=== PATIENT | male | born 1965 | race Caucasian/White ===

== ENCOUNTER 2017-06-12 08:41 | Inpatient (IN) | payer BC, OTHER ==
[~2017-06-12] VITALS: Ht 190.5 cm; Wt 130.0 kg
[~2017-06-12 08:41] MED LIST: ASPI325T4 PO; ATOR-26 PO; CLX/20 PO; FLUT0.15 NAE; LSN5 PO; METO25TA3 PO; NTRGSL4 UT; VITACAP26 PO; XRL15 PO
[2017-06-12] MEDS ORDERED: SODIUM CHLORIDE 0.9% 1000ML 1,000 ML IV STA (09:04)
[2017-06-12] MEDS ORDERED: SODIUM CHLORIDE 0.9% 1000ML 1,000 ML IV ONE (09:04)
[2017-06-12] MEDS ORDERED: ONDANSETRON INJ 2 MG/ML 2 ML VIAL IV STA ×2 (09:04→11:01)
--- NOTE | 2017-06-12 09:07 | EMERGENCY ROOM VISIT NOTE ---
History Report prepared by Loli: Harinder Ribeiro Under the Supervision of: Dr. Onofer Narayanan M.D. First contact with patient: 08:49 Chief Complaint: ABDOMINAL PAIN Stated Complaint: BLOATING & INTENSE PAIN IN ABDOMEN Nursing Triage Summary: Pt reports tightness and bloating in upper abd since . "Body aches and pain in the back, it's hard to eat or take my medicine." Diarrhea and vomiting Tues into Wed, no BM since then. See orange note on chart. History of Present Illness The patient is a 52 year old male with a history of a pulmonary embolism who presents to the Emergency Room with complaints of a persistent illness that started 4 days ago. He states that he started with tightness and bloating in his abdomen, but thought he was getting better because he was not having a fever or a headache. However, the patient states that he then had some diarrhea 3 mornings ago, but has not had a bowel movement since then. He adds that he had some vomiting episodes as well a few days ago. The patient states that whenever he eats or drinks, he feels "bloated", and has not eaten much for 3 days. He notes that he went to the [facility] a few days ago, and it was thought to be food poisoning. He then went to [facility] this morning, and was sent here for concern of dehydration or a blockage. The patient states that he is on Xarelto. He denies any chest pain, shortness of breath, trauma to his abdomen, swelling or pain to his groin, melena, hematochezia, calf pain, or calf swelling. He notes that he has not had any known recent sick contacts. He says that he has not lifted anything overly heavy recently. The patient notes no history of colitis or any other abdominal issues. Source of History: patient Onset: 4 days ago Position: other (global) Quality: other (illness) Timing: other (persistent) Associated Symptoms: + vomiting, + abdominal pain, + diarrhea, No fevers, No headache, No chest pain, No SOB, No melena, No hematochezia Note: Denies calf pain or calf swelling. Review of Systems See HPI for pertinent positives & negatives. A total of 10 systems reviewed and were otherwise negative. Past Medical & Surgical Medical Problems: (1) TELLO (dyspnea on exertion) (2) History of tobacco abuse (3) HTN (hypertension) (4) Hyperlipidemia Surgical Problems: (1) Hx of tympanostomy tubes Old medical records were reviewed. Nurse's notes were reviewed and I agree with. Family History DVT SISTER FH: CAD (coronary artery disease) GRANDMOTHER FH: pulmonary embolism SISTER GRANDFATHER Stroke GRANDMOTHER TIAs MOTHER Social History Smoking Status: Former Smoker Drug Use: none Marital Status: Current/Historical Medications Scheduled Atorvastatin (Lipitor), 80 MG PO DAILY Citalopram (Citalopram Hydrobromide), 20 MG PO DAILY Lisinopril (Lisinopril), 5 MG PO DAILY Metoprolol Succ (Toprol Xl) (Toprol-Xl), 25 MG PO DAILY Rivaroxaban (Xarelto), 20 MG PO DAILY Vitamins C & E (Vitamin C), 1 CAP PO DAILY Scheduled PRN Fluticasone Propionate (Nasal) (Flonase Allergy Relief), 2 SPRAYS AUBREE DAILY PRN for allergies Nitroglycerin (Nitrostat), 0.4 MG UT UD PRN for Chest Pain Allergies Coded Allergies: No Known Allergies (Unverified , 06/12/17) Physical Exam Vital Signs Date Time Temp Pulse Resp B/P (MAP) Pulse Ox O2 Delivery O2 Flow Rate FiO2 06/12/17 14:01 100 20 175/99 93 06/12/17 12:49 101 18 175/99 93 Room Air 06/12/17 12:40 93 Room Air 06/12/17 11:21 87 Room Air 06/12/17 11:21 94 Nasal Cannula 2.0 06/12/17 10:43 103 18 176/90 94 Room Air 06/12/17 08:43 37.1 117 18 150/89 93 Room Air Physical Exam General: Non-ill appearing middle-aged male in no acute distress. HEENT: Normal cephalic atraumatic. Pupils are equal round and reactive to light. Extraocular movements are intact. Oropharynx is pink with moist mucous membranes. No swelling of the mouth lips or tongue. Neck: Supple with a midline trachea. No meningeal signs or stiffness, no JVD or bruits. No Stridor. Chest: Clear to auscultation bilaterally. No wheezes or rhonchi. No increased work of breathing. Heart: regular rate and rhythm. Abdomen: Soft, tenderness in the epigastric area and slight tenderness in the right upper quadrant, no rebound guarding or rigidity. Extremities: No cyanosis clubbing or edema. No calf tenderness or assymetry Spine/Back. Non tender to palpation. No CVA tenderness Skin: Good turgor without rashes. Neurologic exam: Cranial nerves two through 12 are intact. Motor and sensation are intact and symmetrical throughout. Medical Decision & Procedures ER Provider Diagnostic Interpretation: Radiology results as stated below per my review and radiologist interpretation: SINGLE VIEW CHEST CLINICAL HISTORY: Atypical chest pain. FINDINGS: An AP, portable, upright chest radiograph is correlated with chest CT dated 12/04/2015. The examination is degraded by portable technique and patient rotation. The heart is top normal for projection. The pulmonary vasculature is noncongested. There are low lung volumes. There is left basilar consolidation and a small left pleural effusion. The right lung is grossly clear. No pneumothorax is seen. The bony thorax is grossly intact. IMPRESSION: 1. There is a small left pleural effusion with associated left basilar consolidation. This could represent atelectasis and/or pneumonia. Clinical correlation will be required and radiographic follow-up to resolution is recommended. 2. Low lung volumes. The right lung appears clear. Electronically signed by: Rajendra Oropeza M.D. 06/12/2017 9:34 AM Dictated Date/Time: 06/12/2017 9:[address] SCAN OF THE ABDOMEN AND PELVIS WITH IV CONTRAST CLINICAL HISTORY: Generalized abdominal pain. COMPARISON STUDY: No priors. TECHNIQUE: Following the IV administration of 118 cc of Optiray 320, CT scan of the abdomen and pelvis is performed from the lung bases to the proximal femora. Images are reviewed in the axial, sagittal, and coronal planes. IV contrast was administered without complication. A dose lowering technique was utilized adhering to the principles of ALARA. CT DOSE: 1503.41 mGy.cm FINDINGS: Lung bases: The heart is normal in size and without pericardial effusion. There are coronary artery calcifications. There is a small left pleural effusion with associated consolidation. Trace pleural fluid is seen at the right lung base. Liver: The contrast-enhanced liver is normal in size, contour, and attenuation. There is no intrahepatic biliary ductal dilatation. The hepatic veins and portal veins are patent. Gallbladder: Unremarkable. Spleen: Normal in size and attenuation. Pancreas: The pancreas is edematous and there is significant peripancreatic inflammatory stranding as well as peripancreatic fluid. The appearance is consistent with acute pancreatitis. The pancreatic parenchyma enhances heterogeneously. There is no clear evidence of necrosis. The splenic vein is patent. No organized. Pancreatic fluid collection is suggested. Adrenal glands: Unremarkable. Kidneys: The contrast enhanced kidneys are normal in size and without hydronephrosis. The kidneys enhance symmetrically. Abdominal vasculature: The abdominal aorta is normal in course and caliber. Bowel: The small bowel and colon are normal in course and caliber. The appendix is normal as visualized. Peritoneum: There is trace perihepatic and perisplenic ascites. A small volume of ascites is also noted in the pelvis. No intraperitoneal free air is seen. A fat-containing umbilical hernia is noted. Lymphadenopathy: None. Pelvic viscera: The bladder, prostate, and seminal vesicles are normal as visualized. There is a tiny fat-containing left inguinal hernia. Skeletal structures: No lytic or blastic lesions are seen. IMPRESSION: 1. Findings are consistent with severe acute pancreatitis. 2. No organized peripancreatic fluid collection is identified. The pancreas parenchyma enhances heterogeneously with no clear evidence of necrosis. 3. There is a small volume of abdominopelvic ascites. 4. Small left pleural effusion with associated consolidation. This likely represents atelectasis. Correlate clinically for evidence of superimposed pneumonia. 5. Trace pleural fluid is seen at the right lung base. 6. Additional findings as above. Electronically signed by: Rajendra Oropeza M.D. 06/12/2017 10:47 AM Dictated Date/Time: 06/12/2017 10:39 AM Laboratory Results 06/12/17 09:33 Red Blood Count 4.73, Mean Corpuscular Volume 90.1, Mean Corpuscular Hemoglobin 31.7, Mean Corpuscular Hemoglobin Concent 35.2, Mean Platelet Volume 9.9, Neutrophils (%) (Auto) 87.3, Lymphocytes (%) (Auto) 2.9, Monocytes (%) (Auto) 9.5, Eosinophils (%) (Auto) 0.0, Basophils (%) (Auto) 0.0, Neutrophils # (Auto) 18.99, Lymphocytes # (Auto) 0.64, Monocytes # (Auto) 2.07, Eosinophils # (Auto) 0.00, Basophils # (Auto) 0.01 06/12/17 09:33 Test 06/12/17 09:33 06/12/17 09:34 06/12/17 09:55 06/12/17 12:03 White Blood Count 21.77 K/uL (4.8-10.8) Red Blood Count 4.73 M/uL (4.7-6.1) Hemoglobin 15.0 g/dL (14.0-18.0) Hematocrit 42.6 % (42-52) Mean Corpuscular Volume 90.1 fL (80-100) Mean Corpuscular Hemoglobin 31.7 pg (25-34) Mean Corpuscular Hemoglobin Concent 35.2 g/dl (32-36) Platelet Count 146 K/uL (130-400) Mean Platelet Volume 9.9 fL (7.4-10.4) Neutrophils (%) (Auto) 87.3 % Lymphocytes (%) (Auto) 2.9 % Monocytes (%) (Auto) 9.5 % Eosinophils (%) (Auto) 0.0 % Basophils (%) (Auto) 0.0 % Neutrophils # (Auto) 18.99 K/uL (1.4-6.5) Lymphocytes # (Auto) 0.64 K/uL (1.2-3.4) Monocytes # (Auto) 2.07 K/uL (0.11-0.59) Eosinophils # (Auto) 0.00 K/uL (0-0.5) Basophils # (Auto) 0.01 K/uL (0-0.2) RDW Standard Deviation 40.4 fL (36.4-46.3) RDW Coefficient of Variation 12.1 % (11.5-14.5) Immature Granulocyte % (Auto) 0.3 % Immature Granulocyte # (Auto) 0.06 K/uL (0.00-0.02) Urine Color DK YELLOW Urine Appearance CLEAR (CLEAR) Urine pH 6.0 (4.5-7.5) Urine Specific [place] 1.025 (1.000-1.030) Urine Protein 3+ (NEG) Urine Glucose (UA) NEG (NEG) Urine Ketones 3+ (NEG) Urine Occult Blood 3+ (NEG) Urine Nitrite NEG (NEG) Urine Bilirubin NEG (NEG) Urine Urobilinogen NEG (NEG) Urine Leukocyte Esterase NEG (NEG) Urine WBC (Auto) 1-5 /hpf (0-5) Urine RBC (Auto) 10-30 /hpf (0-4) Urine Hyaline Casts (Auto) 1-5 /lpf (0-5) Urine Epithelial Cells (Auto) >30 /lpf (0-5) Urine Bacteria (Auto) NEG (NEG) Urine Renal Epithelial Cells /lpf (0-5) Anion Gap 8.0 mmol/L (3-11) Est Creatinine Clear Calc Drug Dose 134.0 ml/min Estimated GFR () 107.0 Estimated GFR (Non- 92.3 BUN/Creatinine Ratio 14.4 (10-20) Calcium Level 8.1 mg/dl (8.5-10.1) Total Bilirubin 1.4 mg/dl (0.2-1) Direct Bilirubin 0.3 mg/dl (0-0.2) Aspartate Amino Transf (AST/SGOT) 43 U/L (15-37) Alanine Aminotransferase (ALT/SGPT) 26 U/L (12-78) Alkaline Phosphatase 76 U/L (45-117) Total Protein 7.3 gm/dl (6.4-8.2) Albumin 2.6 gm/dl (3.4-5.0) Amylase Level 64 U/L (25-115) Lipase 271 U/L (73-393) Procalcitonin 0.35 ng/ml (0-0.5) Bedside Troponin I 0.040 ng/ml (0-0.045) Influenza Type A Antigen Neg for Influ A (NEG) Influenza Type B Antigen Neg for Influ B (NEG) Lactic Acid Level 1.2 mmol/L (0.4-2.0) Laboratory studies as stated above per my review. Medications Administered Medications (Trade) Dose Ordered Sig/Fili Route Start Time Stop Time Status Last Admin Dose Admin Sodium Chloride 1,000 ml @ 999 mls/hr Q1H1M STAT IV 06/12/17 09:04 06/12/17 10:04 DC 06/12/17 09:39 999 MLS/HR Sodium Chloride 1,000 ml @ 150 mls/hr Q6H40M ONCE IV 06/12/17 09:04 06/12/17 15:43 06/12/17 10:20 150 MLS/HR Ondansetron HCl (Zofran Inj) 4 mg NOW STAT IV 06/12/17 09:04 06/12/17 09:05 DC 06/12/17 09:38 4 MG Ondansetron HCl (Zofran Inj) 4 mg NOW STAT IV 06/12/17 11:01 06/12/17 11:02 DC 06/12/17 11:10 4 MG Morphine Sulfate (MoRPHine SULFATE INJ) 2 mg NOW STAT IV 06/12/17 11:01 06/12/17 11:02 DC 06/12/17 11:10 2 MG Potassium Chloride (Klor-Con M10) 40 meq NOW STAT PO 06/12/17 13:04 06/12/17 13:05 DC 06/12/17 13:06 40 MEQ Piperacillin Sod/ Tazobactam Sod 3.375 gm/Dextrose 115 ml @ 230 mls/hr NOW ONCE IV 06/12/17 12:30 06/12/17 12:59 DC 06/12/17 14:00 230 MLS/HR ECG Per My Interpretation Indication: abdominal pain Rate (beats per minute): 103 Rhythm: sinus tachycardia Findings: no acute ischemic change, no ectopy Comparison ECG Date: compared to November 2015, T-wave inversions have resolved, rate has increased ED Course 0854: Past medical records reviewed. The patient was evaluated in room B10, and a complete history and physical examination were performed. 0904: Zofran Inj 4 mg IV, NSS 1000 ml @ 150 mls/hr IV, NSS 1000 ml @ 999 mls/hr IV. 1014: I reevaluated the patient and he is resting comfortably. 1058: Upon reevaluation, the patient is resting. I discussed the results and treatment plan with the patient. He verbalized agreement of the treatment plan. The patient will be evaluated for further management. 1101: Morphine Sulfate Inj 2 mg IV. 1105: Discussed the patient's case with Dr. Milo Suazo resident services coordinator. The patient will be evaluated for further management. Medical Decision Differentials include, but are not limited to; viral illness, dehydration, gallbladder disease, bowel obstruction, intraabdominal hemorrhage. This patient comes in as described above. He was placed in room B 11. He's been having abdominal pain and nausea for several days now. Initially, thought it was influenza. He's had no chest pain or shortness of breath. He feels he is dehydrated. IV access established hydrated normal saline bolus. He was also given Zofran 4 mg IV. Multiple blood testing was obtained. He was reassessed frequently. He did also receive IV morphine 2 mg IV Zofran 4 mg. His white count come back elevated at 21,000. He has no significant electrolyte or metabolic abnormalities. His lipase is not significant elevated. His CAT scan however a severe pancreatitis. The gallbladder is normal. In regards his pancreatitis, he does not drink much alcohol. It could be medication or viral related. It could still potentially be related to his gallbladder. He will need further workup in the hospital as well. He is feeling better after receiving IV hydration and pain medicine. I have consulted the hospitalist group who will see him in the ER for these measures. Medication Reconcilliation Current Medication List: was personally reviewed by me Blood Pressure Screening Patient's blood pressure: Elevated blood pressure Referred to hospitalist. Consults Time Called: 1100 Consulting Physician: Dr. Milo Suazo resident services coordinator Returned Call: [phone] Discussed the patient's case with Dr. Milo Suazo resident services coordinator. The patient will be evaluated for further management. Impression Primary Impression: Pancreatitis Additional Impression: Epigastric abdominal pain Scribe Attestation The scribe's documentation has been prepared under my direction and personally reviewed by me in its entirety. I confirm that the note above accurately reflects all work, treatment, procedures, and medical decision making performed by me. Departure Information Dispostion Being Evaluated By Hospitalist Referrals Maureen TAVAREZ M.D. (PCP) Patient Instructions My [facility] Problem Qualifiers
[2017-06-12] MEDS ORDERED: RIVA1TAB4 PO (09:12)
--- NOTE | 2017-06-12 09:36 | DIAGNOSTIC IMAGING REPORT ---
SINGLE VIEW CHEST CLINICAL HISTORY: Atypical chest pain. FINDINGS: An AP, portable, upright chest radiograph is correlated with chest CT dated 12/04/2015. The examination is degraded by portable technique and patient rotation. The heart is top normal for projection. The pulmonary vasculature is noncongested. There are low lung volumes. There is left basilar consolidation and a small left pleural effusion. The right lung is grossly clear. No pneumothorax is seen. The bony thorax is grossly intact. IMPRESSION: 1. There is a small left pleural effusion with associated left basilar consolidation. This could represent atelectasis and/or pneumonia. Clinical correlation will be required and radiographic follow-up to resolution is recommended. 2. Low lung volumes. The right lung appears clear. Electronically signed by: Rajendra Oropeza M.D. 06/12/2017 9:34 AM Dictated Date/Time: 06/12/2017 9:33 AM
[2017-06-12 09:58] LABS: ALBUMIN 2.6 gm/dl (3.4-5.0); CALCIUM 8.1 mg/dl (8.5-10.1); CREATININE 0.95 mg/dl (0.60-1.40); POTASSIUM 3.2 mmol/L (3.5-5.1)
[2017-06-12 10:01] LABS: TOTAL PROTEIN 7.3 gm/dl (6.4-8.2)
[2017-06-12 10:06] LABS: BASO ABS # 0.01 K/uL (0-0.2); HEMATOCRIT 42.6 % (42-52); IG# 0.06 K/uL (0.00-0.02); LYMPH % 2.9 %; LYMPH ABS # 0.64 K/uL (1.2-3.4); MEAN CELL VOLUME 90.1 fL (80-100); MEAN CORPUSCULAR HEMOGLOBIN 31.7 pg (25-34); MEAN CORPUSCULAR HGB CONC 35.2 g/dl (32-36); MEAN PLATELET VOLUME 9.9 fL (7.4-10.4); MONO % 9.5 %; MONO ABS # 2.07 K/uL (0.11-0.59); NEUT % 87.3 %; NEUT ABS # 18.99 K/uL (1.4-6.5); PLATELET COUNT 146 K/uL (130-400); RED CELL DISTRIBUTION WIDTH CV 12.1 % (11.5-14.5); RED CELL DISTRIBUTION WIDTH SD 40.4 fL (36.4-46.3); WHITE BLOOD COUNT 21.77 K/uL (4.8-10.8)
[2017-06-12] MEDS ORDERED: OPTIRAY 320 IV PRN (10:15)
[2017-06-12 10:33] LABS: INFLUENZA B ANTIGEN Neg for Influ B (NEG)
--- NOTE | 2017-06-12 10:48 | DIAGNOSTIC IMAGING REPORT ---
CT SCAN OF THE ABDOMEN AND PELVIS WITH IV CONTRAST CLINICAL HISTORY: Generalized abdominal pain. COMPARISON STUDY: No priors. TECHNIQUE: Following the IV administration of 118 cc of Optiray 320, CT scan of the abdomen and pelvis is performed from the lung bases to the proximal femora. Images are reviewed in the axial, sagittal, and coronal planes. IV contrast was administered without complication. A dose lowering technique was utilized adhering to the principles of ALARA. CT DOSE: 1503.41 mGy.cm FINDINGS: Lung bases: The heart is normal in size and without pericardial effusion. There are coronary artery calcifications. There is a small left pleural effusion with associated consolidation. Trace pleural fluid is seen at the right lung base. Liver: The contrast-enhanced liver is normal in size, contour, and attenuation. There is no intrahepatic biliary ductal dilatation. The hepatic veins and portal veins are patent. Gallbladder: Unremarkable. Spleen: Normal in size and attenuation. Pancreas: The pancreas is edematous and there is significant peripancreatic inflammatory stranding as well as peripancreatic fluid. The appearance is consistent with acute pancreatitis. The pancreatic parenchyma enhances heterogeneously. There is no clear evidence of necrosis. The splenic vein is patent. No organized. Pancreatic fluid collection is suggested. Adrenal glands: Unremarkable. Kidneys: The contrast enhanced kidneys are normal in size and without hydronephrosis. The kidneys enhance symmetrically. Abdominal vasculature: The abdominal aorta is normal in course and caliber. Bowel: The small bowel and colon are normal in course and caliber. The appendix is normal as visualized. Peritoneum: There is trace perihepatic and perisplenic ascites. A small volume of ascites is also noted in the pelvis. No intraperitoneal free air is seen. A fat-containing umbilical hernia is noted. Lymphadenopathy: None. Pelvic viscera: The bladder, prostate, and seminal vesicles are normal as visualized. There is a tiny fat-containing left inguinal hernia. Skeletal structures: No lytic or blastic lesions are seen. IMPRESSION: 1. Findings are consistent with severe acute pancreatitis. 2. No organized peripancreatic fluid collection is identified. The pancreas parenchyma enhances heterogeneously with no clear evidence of necrosis. 3. There is a small volume of abdominopelvic ascites. 4. Small left pleural effusion with associated consolidation. This likely represents atelectasis. Correlate clinically for evidence of superimposed pneumonia. 5. Trace pleural fluid is seen at the right lung base. 6. Additional findings as above. Electronically signed by: Rajendra Oropeza M.D. 06/12/2017 10:47 AM Dictated Date/Time: 06/12/2017 10:39 AM
[2017-06-12] MEDS ORDERED: MoRPHine SULFATE 2 MG/ML CARP IV STA (11:01)
--- NOTE | 2017-06-12 11:23 | History and Physical ---
History & Physical Date & Time of Service: Jun 12, 2017 at 11:23 Chief Complaint: Bloating & Intense Pain In Abdomen Primary Care Physician: Maureen TAVAREZ M.D. History of Present Illness Source: patient Patient is 52 yr male with PMH of PE on Xarelto, HTN, HLP, NEIDA, Thyroid Nodule, Chronic rhinitis and other problems presents with history of abdominal pain, bloating which started 4 days ago. Patient states he noticed the pain started after drinking alcohol on Wednesday night. Abdominal pain is sharp, consistent, 7/ 10, radiates to back, associated with poor appetite, nausea, vomiting, improved minimally with Pepto Bismol and worsens with food intake. Denies similar symptoms in the past. He states he socially drinks alcohol twice a week. Reports one episode of diarrhea on Wednesday and had no bowel movement since then.Patient states he feels bloated with minimal food intake and has been burping a lot. Reports low grade fever but denies any chest pain, SOB, dizziness , cough, blood in stools, dysuria, recent travel, sick contact, recent change in medications. Past Medical/Surgical History Medical Problems: (1) TELLO (dyspnea on exertion) (2) History of tobacco abuse (3) HTN (hypertension) (4) Hyperlipidemia Surgical Problems: (1) Hx of tympanostomy tubes Family History DVT SISTER FH: CAD (coronary artery disease) GRANDMOTHER FH: pulmonary embolism SISTER GRANDFATHER Stroke GRANDMOTHER TIAs MOTHER Reviewed as above Social History Smoking Status: Former Smoker Alcohol Use: socially Drug Use: none Marital Status: Housing status: lives with significant other Allergies Coded Allergies: No Known Allergies (Unverified , 06/12/17) Home Medications Scheduled Atorvastatin (Lipitor), 80 MG PO DAILY Citalopram (Citalopram Hydrobromide), 20 MG PO DAILY Lisinopril (Lisinopril), 5 MG PO DAILY Metoprolol Succ (Toprol Xl) (Toprol-Xl), 25 MG PO DAILY Rivaroxaban (Xarelto), 20 MG PO DAILY Vitamins C & E (Vitamin C), 1 CAP PO DAILY Scheduled PRN Fluticasone Propionate (Nasal) (Flonase Allergy Relief), 2 SPRAYS AUBREE DAILY PRN for allergies Nitroglycerin (Nitrostat), 0.4 MG UT UD PRN for Chest Pain Review of Systems See HPI for pertinent positives & negatives. A total of 10 systems reviewed and were otherwise negative. Physical Exam Vital Signs Date Time Temp Pulse Resp B/P (MAP) Pulse Ox O2 Delivery O2 Flow Rate FiO2 06/12/17 11:21 94 Nasal Cannula 2.0 06/12/17 10:43 103 18 176/90 94 Room Air 06/12/17 08:43 37.1 117 18 150/89 93 Room Air General Appearance: WD/WN, no apparent distress Head: normocephalic, atraumatic Eyes: normal inspection, PERRL, EOMI, sclerae normal ENT: normal ENT inspection, hearing grossly normal Neck: supple, trachea midline Respiratory/Chest: chest non-tender, lungs clear, normal breath sounds, no respiratory distress, no accessory muscle use Cardiovascular: regular rate, rhythm, no edema, no murmur, + tachycardia Abdomen/GI: normal bowel sounds, soft, + tenderness (Epigastric tenderness), + pertinent finding (No guarding, rigidity) Back: normal inspection Extremities/Musculoskelatal: normal inspection, no pedal edema Neurologic/Psych: 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-XII 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 as tested, no motor/sensory deficits, alert, normal mood/affect, oriented x 3 Skin: normal color, warm/dry Diagnostics Laboratory Results Results Past 24 Hours Test 06/12/17 09:33 06/12/17 09:34 06/12/17 09:55 Range/Units White Blood Count 21.77 4.8-10.8 K/uL Red Blood Count 4.73 4.7-6.1 M/uL Hemoglobin 15.0 14.0-18.0 g/dL Hematocrit 42.6 42-52 % Mean Corpuscular Volume 90.1 80-100 fL Mean Corpuscular Hemoglobin 31.7 25-34 pg Mean Corpuscular Hemoglobin Concent 35.2 32-36 g/dl Platelet Count 146 130-400 K/uL Mean Platelet Volume 9.9 7.4-10.4 fL Neutrophils (%) (Auto) 87.3 % Lymphocytes (%) (Auto) 2.9 % Monocytes (%) (Auto) 9.5 % Eosinophils (%) (Auto) 0.0 % Basophils (%) (Auto) 0.0 % Neutrophils # (Auto) 18.99 1.4-6.5 K/uL Lymphocytes # (Auto) 0.64 1.2-3.4 K/uL Monocytes # (Auto) 2.07 0.11-0.59 K/uL Eosinophils # (Auto) 0.00 0-0.5 K/uL Basophils # (Auto) 0.01 0-0.2 K/uL RDW Standard Deviation 40.4 36.4-46.3 fL RDW Coefficient of Variation 12.1 11.5-14.5 % Immature Granulocyte % (Auto) 0.3 % Immature Granulocyte # (Auto) 0.06 0.00-0.02 K/uL Urine Color DK YELLOW Urine Appearance CLEAR CLEAR Urine pH 6.0 4.5-7.5 Urine Specific [place] 1.025 1.000-1.030 Urine Protein 3+ NEG Urine Glucose (UA) NEG NEG Urine Ketones 3+ NEG Urine Occult Blood 3+ NEG Urine Nitrite NEG NEG Urine Bilirubin NEG NEG Urine Urobilinogen NEG NEG Urine Leukocyte Esterase NEG NEG Urine WBC (Auto) 1-5 0-5 /hpf Urine RBC (Auto) 10-30 0-4 /hpf Urine Hyaline Casts (Auto) 1-5 0-5 /lpf Urine Epithelial Cells (Auto) >30 0-5 /lpf Urine Bacteria (Auto) NEG NEG Urine Renal Epithelial Cells 0-5 /lpf Sodium Level 126 136-145 mmol/L Potassium Level 3.2 3.5-5.1 mmol/L Chloride Level 90 98-107 mmol/L Carbon Dioxide Level 28 21-32 mmol/L Anion Gap 8.0 3-11 mmol/L Blood Urea Nitrogen 14 7-18 mg/dl Creatinine 0.95 0.60-1.40 mg/dl Est Creatinine Clear Calc Drug Dose 134.0 ml/min Estimated GFR () 107.0 Estimated GFR (Non- 92.3 BUN/Creatinine Ratio 14.4 10-20 Random Glucose 111 70-99 mg/dl Calcium Level 8.1 8.5-10.1 mg/dl Total Bilirubin 1.4 0.2-1 mg/dl Direct Bilirubin 0.3 0-0.2 mg/dl Aspartate Amino Transf (AST/SGOT) 43 15-37 U/L Alanine Aminotransferase (ALT/SGPT) 26 12-78 U/L Alkaline Phosphatase 76 45-117 U/L Total Protein 7.3 6.4-8.2 gm/dl Albumin 2.6 3.4-5.0 gm/dl Lipase 271 73-393 U/L Bedside Troponin I 0.040 0-0.045 ng/ml Influenza Type A Antigen Neg for Influ A NEG Influenza Type B Antigen Neg for Influ B NEG Microbiology Results 06/12/17 Urine Culture, Received Pending Diagnostic Radiology CT ABD: 1. Findings are consistent with severe acute pancreatitis. 2. No organized peripancreatic fluid collection is identified. The pancreas parenchyma enhances heterogeneously with no clear evidence of necrosis. 3. There is a small volume of abdominopelvic ascites. 4. Small left pleural effusion with associated consolidation. This likely represents atelectasis. Correlate clinically for evidence of superimposed pneumonia. 5. Trace pleural fluid is seen at the right lung base. 6. Additional findings as above. CXR: 1. There is a small left pleural effusion with associated left basilar consolidation. This could represent atelectasis and/or pneumonia. Clinical correlation will be required and radiographic follow-up to resolution is recommended. 2. Low lung volumes. The right lung appears clear. EKG EKG:Sinus Tachycardia, LVH Impression Assessment and Plan Acute Pancreatitis: Likely alcohol induced CT ABD: suggestive of severe acute pancreatitis NPO IV fluids Lipase levels normal No clear evidence of necrosis on CT scan Counseled to quit alcohol Hold Statins Check RUQ ultrasound GI consulted Empiric antibiotics IV zosyn Check Lipid panel Pain control Monitor LFTs Hyponatremia/Hypokalemia: Likely secondary to dehydration from poor oral intake IV fluids Replace electrolytes as needed Possible Pneumonia (CAP): SIRS Denies respiratory symptoms Was hypoxic secondary to morphine in ED Empiric Abx as above Oxygen PRN Normal lactate, procalcitonin FU cultures H/O PE on Xarelto: Denies bleeding issues continue Xarelto HTN: Uncontrolled likely secondary to pain Continue home meds Labetalol PRN HLP: Hold statin secondary to pancreatitis NEIDA: Stable Continue Celexa Thyroid Nodule: Follow up as outpatient DVT Px: On Xarelto Code Status: Full Code Resuscitation Status VTE Prophylaxis Will order VTE Prophylaxis: Yes
[2017-06-12] MEDS ORDERED: PIPERACILL/TAZOBAC IV 3.375 GM in DEXTROSE 5% 100ML IV ONE (12:30)
[2017-06-12] MEDS ORDERED: FLUTICASONE PROPIONATE NA SPR 16 GM BTL NAE PRN (12:30)
[2017-06-12] MEDS ORDERED: ONDANSETRON INJ 2 MG/ML 2 ML VIAL IV PRN (12:30)
[2017-06-12] MEDS ORDERED: NITROGLYCERIN 0.4 MG SL PER TAB CHARGE SL PRN (12:30)
[2017-06-12] MEDS ORDERED: ACETAMINOPHEN 325 MG TAB PO PRN (12:30)
[2017-06-12] MEDS ORDERED: FAMOTIDINE IV INJ 20 MG in DEXTROSE 5% 100ML 100 ML IV SCH (12:30)
[2017-06-12 12:40] VITALS: O2SAT 93; BMI 36.0
[2017-06-12] MEDS ORDERED: PIPERACILL/TAZOBAC CONSULT ACTIVE PRN (12:45)
[2017-06-12 12:59] VITALS: Ht 190.5 cm; Wt 130.0 kg
[2017-06-12] MEDS ORDERED: POTASSIUM CHLORIDE 10 MEQ TABCR PO STA (13:04)
[2017-06-12] MEDS ORDERED: POTASSIUM CHLORIDE 10 MEQ TABCR ONE (13:05)
[2017-06-12 14:01] VITALS: O2SAT 93
--- NOTE | 2017-06-12 14:51 | DIAGNOSTIC IMAGING REPORT ---
ULTRASOUND RIGHT UPPER QUADRANT ABDOMEN CLINICAL HISTORY: Elevated hepatic transaminases. COMPARISON STUDY: Abdominal CT dated 06/12/2017. TECHNIQUE: Real-time, grayscale, and color flow sonography of the right upper quadrant of the abdomen was performed. Images are reviewed in the transverse and longitudinal planes. The examination is degraded by large body habitus. FINDINGS: Liver: The liver is normal in size and demonstrates heterogeneously increased echotexture suggesting mild steatosis. There is no intrahepatic biliary ductal dilatation. The main portal vein is patent. Gallbladder: The gallbladder is normal in appearance. No gallstones are identified. There is no gallbladder wall thickening or pericholecystic fluid. A sonographic Cornelius's sign is reportedly absent. The common bile duct measures up to 0.5 cm in diameter. Pancreas: Not well visualized due to overlying bowel gas. Right kidney: Survey images of the right kidney demonstrate normal size and echotexture. There is no hydronephrosis. Ascites: None. IMPRESSION: 1. Findings suggest mild hepatic steatosis. 2. No gallstones are identified. 3. The pancreas was not well visualized. Electronically signed by: Rajendra Oropeza M.D. 06/12/2017 2:50 PM Dictated Date/Time: 06/12/2017 2:49 PM
[2017-06-12] MEDS: NSS + 20MEQ KCL 1000ML 1,000 ML IV SCH ×2 (15:19→19:52)
[2017-06-12] MEDS: FAMOTIDINE IV INJ 20 MG in SYRINGE 3 ML IV SCH (15:20)
[2017-06-12] MEDS: MoRPHine SULFATE 2 MG/ML CARP IV PRN ×2 (15:27→19:51)
[2017-06-12 15:36] VITALS: BP 164/108; PULSE 100; TEMP 37.2; O2SAT 94
[2017-06-12] MEDS ORDERED: NURSING VERBAL MED ORDER ONE (16:00)
--- NOTE | 2017-06-12 17:12 | Gastrointestinal Consultation ---
Gastrointestinal Consultation Date of Consultation: Jun 12, 2017 Attending Physician: Danielle Alcocer Consulting Physician: Reason for Consultation: Pancreatitis History of Present Illness Patient is a 52 year old male with medical comorbids of PE on Xarelto, HTN, HLP , Thyroid Nodule, Chronic rhinitis, presented to the hospital with abdominal pain for few days. Pain is sharp, radiates to the back, intermittent, nonprogressing, aggravated by eating and relieved with pain meds, associated with nausea. Pain started after drinking alcohol few days ago. Per his he drinks 2-3 times weekly for many years. Denies any diarrhea or constipation, no weight loss, no dysphagia, no melena and no fever. No similar attacks in the past. Past Medical/Surgical History Medical Problems: (1) Epigastric abdominal pain Status: Acute (2) Pancreatitis Status: Acute Past Medical History: (1) TELLO (dyspnea on exertion) (2) History of tobacco abuse (3) HTN (hypertension) (4) Hyperlipidemia Past Surgical History: (1) Hx of tympanostomy tubes Family History DVT SISTER FH: CAD (coronary artery disease) GRANDMOTHER FH: pulmonary embolism SISTER GRANDFATHER Stroke GRANDMOTHER TIAs MOTHER Social History Smoking Status: Former Smoker Drug Use: none Marital Status: Allergies Coded Allergies: No Known Allergies (Unverified , 06/12/17) Current Medications Home Meds and Scripts Medications Dose Route/Sig Max Daily Dose Days Date Category Xarelto (Rivaroxaban) 20 Mg Tab 20 Mg PO DAILY 06/12/17 Reported Vitamin C (Vitamins C & E) 1 Cap Cap 1 Cap PO DAILY 12/04/15 Reported Nitrostat (Nitroglycerin) 0.4 Mg/1 Tab Subl 0.4 Mg UT UD PRN 12/04/15 Reported Toprol-Xl (Metoprolol Succinate) 25 Mg Tabcr 25 Mg PO DAILY 12/04/15 Reported Lisinopril 5 Mg Tab 5 Mg PO DAILY 12/04/15 Reported Flonase Allergy Relief (Fluticasone Propionate (Nasal)) 50 Mcg/Act Spr 2 Sprays AUBREE DAILY PRN 12/04/15 Reported Citalopram Hydrobromide (Citalopram) 20 Mg Tab 20 Mg PO DAILY 12/04/15 Reported Lipitor (Atorvastatin Calcium) 80 Mg Tab 80 Mg PO DAILY 12/04/15 Reported Review of Systems Constitutional: No fever, No chills Eyes: No worsening of vision, No eye pain ENT: No hearing loss, No sore throat Respiratory: No cough, No sputum Cardiac: No chest pain, No PND Abdomen: + see HPI Musculoskeletal: No joint pain, No muscle pain Male : No dysuria, No urinary frequency Neuro: No memory loss, No paralysis Heme: No abnormal bleeding/bruising, No clotting problems Endo: No fatigue Skin: No rash, No itch Physical Exam Date Time Temp Pulse Resp B/P (MAP) Pulse Ox O2 Delivery O2 Flow Rate FiO2 06/12/17 16:00 Room Air 06/12/17 15:36 37.2 100 18 164/108 (126) 94 Room Air 06/12/17 14:01 100 20 175/99 93 06/12/17 12:49 101 18 175/99 93 Room Air 06/12/17 12:40 93 Room Air 06/12/17 11:21 87 Room Air 06/12/17 11:21 94 Nasal Cannula 2.0 06/12/17 10:43 103 18 176/90 94 Room Air 06/12/17 08:43 37.1 117 18 150/89 93 Room Air General Appearance: no apparent distress Eyes: PERRL ENT: pharynx normal Neck: supple, no JVD Respiratory/Chest: lungs clear, normal breath sounds Cardiovascular: regular rate, rhythm, no edema Abdomen: normal bowel sounds, non tender, soft Extremities: normal range of motion Neurologic/Psych: oriented x 3 Skin: no jaundice Laboratory Results Last 24 Hours Test 06/12/17 09:33 06/12/17 09:34 06/12/17 09:55 06/12/17 12:03 White Blood Count 21.77 K/uL Red Blood Count 4.73 M/uL Hemoglobin 15.0 g/dL Hematocrit 42.6 % Mean Corpuscular Volume 90.1 fL Mean Corpuscular Hemoglobin 31.7 pg Mean Corpuscular Hemoglobin Concent 35.2 g/dl Platelet Count 146 K/uL Mean Platelet Volume 9.9 fL Neutrophils (%) (Auto) 87.3 % Lymphocytes (%) (Auto) 2.9 % Monocytes (%) (Auto) 9.5 % Eosinophils (%) (Auto) 0.0 % Basophils (%) (Auto) 0.0 % Neutrophils # (Auto) 18.99 K/uL Lymphocytes # (Auto) 0.64 K/uL Monocytes # (Auto) 2.07 K/uL Eosinophils # (Auto) 0.00 K/uL Basophils # (Auto) 0.01 K/uL RDW Standard Deviation 40.4 fL RDW Coefficient of Variation 12.1 % Immature Granulocyte % (Auto) 0.3 % Immature Granulocyte # (Auto) 0.06 K/uL Urine Color DK YELLOW Urine Appearance CLEAR Urine pH 6.0 Urine Specific [place] 1.025 Urine Protein 3+ Urine Glucose (UA) NEG Urine Ketones 3+ Urine Occult Blood 3+ Urine Nitrite NEG Urine Bilirubin NEG Urine Urobilinogen NEG Urine Leukocyte Esterase NEG Urine WBC (Auto) 1-5 /hpf Urine RBC (Auto) 10-30 /hpf Urine Hyaline Casts (Auto) 1-5 /lpf Urine Epithelial Cells (Auto) >30 /lpf Urine Bacteria (Auto) NEG Urine Renal Epithelial Cells /lpf Sodium Level 126 mmol/L Potassium Level 3.2 mmol/L Chloride Level 90 mmol/L Carbon Dioxide Level 28 mmol/L Anion Gap 8.0 mmol/L Blood Urea Nitrogen 14 mg/dl Creatinine 0.95 mg/dl Est Creatinine Clear Calc Drug Dose 134.0 ml/min Estimated GFR () 107.0 Estimated GFR (Non- 92.3 BUN/Creatinine Ratio 14.4 Random Glucose 111 mg/dl Calcium Level 8.1 mg/dl Total Bilirubin 1.4 mg/dl Direct Bilirubin 0.3 mg/dl Aspartate Amino Transf (AST/SGOT) 43 U/L Alanine Aminotransferase (ALT/SGPT) 26 U/L Alkaline Phosphatase 76 U/L Total Protein 7.3 gm/dl Albumin 2.6 gm/dl Amylase Level 64 U/L Lipase 271 U/L Procalcitonin 0.35 ng/ml Bedside Troponin I 0.040 ng/ml Influenza Type A Antigen Neg for Influ A Influenza Type B Antigen Neg for Influ B Lactic Acid Level 1.2 mmol/L Impression Patient is a 52 year old male admitted with acute pancreatitis but no evidence of end organ failure. Has leukocytosis and hemoconcentration with ??PNA. His kidney function is normal. CT scan with no pancreatic necrosis or fluid collection. Sono with no gallstones. Etiology is likely Alcohol. Plan Supportive care. IV Hydration at 200cc/hr Monitor Hct and BUN closely. Pain control. NPO today and will advance tomorrow based on clinical status. Advised to avoid alcohol. If this recurs in the future will need referral for EUS.
[2017-06-12 19:48] VITALS: BP 186/109; PULSE 63; TEMP 37; O2SAT 90
[2017-06-12] MEDS: LABETALOL HCL IV 5 MG/ML 20ML IV PRN (20:08)
[2017-06-12] MEDS: PIPERACILL/TAZOBAC IV 4.5 GM in DEXTROSE 5% 100ML IV SCH (21:02)
[2017-06-12 23:48] VITALS: BP 158/83; PULSE 91; TEMP 36.5; O2SAT 88
[2017-06-13] VITALS (7 sets, daily range): BP systolic 144–171; BP diastolic 82–100; PULSE 84–88; TEMP 36.6–37.2; O2SAT 92–94
[2017-06-13] MEDS: NSS + 20MEQ KCL 1000ML 1,000 ML IV SCH ×5 (01:05→20:20)
[2017-06-13] MEDS: PIPERACILL/TAZOBAC IV 4.5 GM in DEXTROSE 5% 100ML IV SCH ×3 (04:16→20:19)
[2017-06-13] MEDS: FAMOTIDINE IV INJ 20 MG in SYRINGE 3 ML IV SCH ×2 (04:17→16:43)
[2017-06-13 06:48] LABS: BASO % 0.1 %; BASO ABS # 0.01 K/uL (0-0.2); EOS % 0.3 %; EOS ABS # 0.05 K/uL (0-0.5); HEMATOCRIT 36.3 % (42-52); HEMOGLOBIN 12.7 g/dL (14.0-18.0); IG# 0.05 K/uL (0.00-0.02); LYMPH % 7.2 %; LYMPH ABS # 1.24 K/uL (1.2-3.4); MEAN CELL VOLUME 90.8 fL (80-100); MEAN CORPUSCULAR HEMOGLOBIN 31.8 pg (25-34); MEAN PLATELET VOLUME 8.9 fL (7.4-10.4); MONO % 7.7 %; MONO ABS # 1.33 K/uL (0.11-0.59); NEUT % 84.4 %; NEUT ABS # 14.63 K/uL (1.4-6.5); PLATELET COUNT 130 K/uL (130-400); RED CELL DISTRIBUTION WIDTH CV 12.5 % (11.5-14.5); RED CELL DISTRIBUTION WIDTH SD 41.3 fL (36.4-46.3); WHITE BLOOD COUNT 17.31 K/uL (4.8-10.8)
[2017-06-13 07:26] LABS: ALBUMIN 2.2 gm/dl (3.4-5.0); CALCIUM 7.5 mg/dl (8.5-10.1); CREATININE 0.91 mg/dl (0.60-1.40); POTASSIUM 3.7 mmol/L (3.5-5.1); TOTAL PROTEIN 6.3 gm/dl (6.4-8.2)
[2017-06-13] MEDS ORDERED: LISINOPRIL 5 MG TAB PO SCH (09:00)
[2017-06-13] MEDS: CITALOPRAM 20 MG TAB PO SCH (09:01)
[2017-06-13] MEDS: METOPROLOL SUCC 25MG EXT REL TAB PO SCH (09:01)
--- NOTE | 2017-06-13 10:05 | Gastroenterology Progress Note ---
Gastroenterology Progress Note Patient seen and examined today, feels much better. No abdominal pain, nausea or vomiting. Tolerated clear liquids. On exam abdomen is soft and nontwender. Labs showed downtrend in Hct. His acute pancreatitis is resolving. Recommendations: Supportive care with IV hydration and pain control. Advance diet tomorrow as tolerated. Alcohol cessation. Recall GI if needed.
[2017-06-13] MEDS: MoRPHine SULFATE 2 MG/ML CARP IV PRN (10:47)
--- NOTE | 2017-06-13 15:06 | Progress Note ---
Medicine Progress Note Date & Time of Visit: Jun 13, 2017 at 14:47. Subjective Pt was seen and examined Lying in bed with no distress Pt said that his abdominal pain improves Denies any chest pain, palpitation, dizziness and SOB Objective Last 8 Hrs Date Time Temp Pulse Resp B/P (MAP) Pulse Ox O2 Delivery O2 Flow Rate FiO2 06/13/17 12:15 37.0 88 20 160/82 (108) 92 Room Air 06/13/17 12:00 Room Air 06/13/17 08:30 Room Air 06/13/17 07:58 36.7 86 20 158/92 (114) 92 Room Air Physical Exam: General- No acute distress Head- atraumatic Eyes- PERRL, EOMI ENT- oropharynx clear Neck- supple, no JVD Lungs- clear to auscultation Heart- regular rhythm Abdomen- +bowel sounds, soft, +tender Extremities- no calf tenderness Neuro- alert, oriented x 3; PERRL, EOMI; no facial palsy Skin- warm & dry Laboratory Results: Last 24 Hours Test 06/13/17 06:39 White Blood Count 17.31 K/uL Red Blood Count 4.00 M/uL Hemoglobin 12.7 g/dL Hematocrit 36.3 % Mean Corpuscular Volume 90.8 fL Mean Corpuscular Hemoglobin 31.8 pg Mean Corpuscular Hemoglobin Concent 35.0 g/dl Platelet Count 130 K/uL Mean Platelet Volume 8.9 fL Neutrophils (%) (Auto) 84.4 % Lymphocytes (%) (Auto) 7.2 % Monocytes (%) (Auto) 7.7 % Eosinophils (%) (Auto) 0.3 % Basophils (%) (Auto) 0.1 % Neutrophils # (Auto) 14.63 K/uL Lymphocytes # (Auto) 1.24 K/uL Monocytes # (Auto) 1.33 K/uL Eosinophils # (Auto) 0.05 K/uL Basophils # (Auto) 0.01 K/uL RDW Standard Deviation 41.3 fL RDW Coefficient of Variation 12.5 % Immature Granulocyte % (Auto) 0.3 % Immature Granulocyte # (Auto) 0.05 K/uL Sodium Level 133 mmol/L Potassium Level 3.7 mmol/L Chloride Level 99 mmol/L Carbon Dioxide Level 30 mmol/L Anion Gap 4.0 mmol/L Blood Urea Nitrogen 12 mg/dl Creatinine 0.91 mg/dl Est Creatinine Clear Calc Drug Dose 140.2 ml/min Estimated GFR () 112.7 Estimated GFR (Non- 97.2 BUN/Creatinine Ratio 13.1 Random Glucose 107 mg/dl Calcium Level 7.5 mg/dl Magnesium Level 2.6 mg/dl Total Bilirubin 0.9 mg/dl Aspartate Amino Transf (AST/SGOT) 29 U/L Alanine Aminotransferase (ALT/SGPT) 21 U/L Alkaline Phosphatase 69 U/L Total Protein 6.3 gm/dl Albumin 2.2 gm/dl Globulin 4.1 gm/dl Albumin/Globulin Ratio 0.5 Triglycerides Level 76 mg/dl Cholesterol Level 95 mg/dl HDL Cholesterol 25 mg/dl LDL Cholesterol, Calculated 55 mg/dl VLDL Cholesterol, Calculated 15 mg/dl Cholesterol/HDL Ratio 3.8 Lipase 162 U/L Assessment & Plan Acute Pancreatitis: Mostly induced by alcohol intake CT abd/pelvis showed findings that are consistent with severe acute pancreatitis. No organized peripancreatic fluid collection is identified Abd U/S showed findings suggest mild hepatic steatosis. No gallstones are identified. Will start on clear liquid diet Continue IV fluids Lipase levels remain normal No clear evidence of necrosis on CT scan GI on board recommended supportive management for now Continue antibiotics IV zosyn Continue pain management Electrolytes imbalance Likely secondary to dehydration from poor oral intake Continue IV fluids Monitor electrolytes Elevated WBC Possible due Pneumonia vs acute pancreatitis WBC 21K on admission WBC today 17K Afebrile, UA no growth Blood cx pending Normal lactate, procalcitonin Continue IV zosyn for now H/O PE on Xarelto: Denies bleeding issues continue Xarelto Stable HTN: Possible related to pain Might consider to increase lisinopril to 10mg if BP remains elevate Continue metoprolol Continue Labetalol PRN Monitor BP HLP: Continue holding statin secondary to pancreatitis NEIDA: Continue Celexa Stable Thyroid Nodule: Follow up as outpatient Stable DVT Px: On Xarelto Code Status: Full Code Current Inpatient Medications: Current Inpatient Medications Medications (Trade) Dose Ordered Sig/Fili Route Start Time Stop Time Status Last Admin Dose Admin Ioversol (Optiray 320) 111 ml UD PRN IV 06/12/17 10:15 06/16/17 10:14 Potassium Chloride/Sodium Chloride 1,000 ml @ 200 mls/hr Q5H IV 06/12/17 15:00 07/12/17 14:59 06/13/17 10:47 200 MLS/HR Acetaminophen (Tylenol Tab) 650 mg Q4H PRN PO 06/12/17 12:30 07/12/17 12:29 Ondansetron HCl (Zofran Inj) 4 mg Q6H PRN IV 06/12/17 12:30 07/12/17 12:29 Nitroglycerin (Nitrostat Tab) 0.4 mg UD PRN SL 06/12/17 12:30 07/12/17 12:29 Miscellaneous Information (Consult) 1 ea UD PRN N/A 06/12/17 12:45 07/12/17 12:44 Morphine Sulfate (MoRPHine SULFATE INJ) 1 mg Q4H PRN IV 06/12/17 12:30 06/26/17 12:29 06/13/17 10:47 1 MG Citalopram Hydrobromide (celeXA TAB) 20 mg DAILY PO 06/13/17 09:00 07/13/17 08:59 06/13/17 09:01 20 MG Fluticasone Propionate (Flonase Nasal [place]) 2 sprays DAILY PRN AUBREE 06/12/17 12:30 07/12/17 12:29 Lisinopril (Zestril Tab) 5 mg DAILY PO 06/13/17 09:00 07/13/17 08:59 06/13/17 09:01 5 MG Metoprolol Succinate (Toprol Xl Tab) 25 mg DAILY PO 06/13/17 09:00 07/13/17 08:59 06/13/17 09:01 25 MG Rivaroxaban (Xarelto Tab) 20 mg DAILY@1700 PO 06/13/17 17:00 07/13/17 16:59 Labetalol HCl (Normodyne IV) 10 mg Q6H PRN IV 06/12/17 12:45 07/12/17 12:44 06/12/17 20:08 10 MG Piperacillin Sod/ Tazobactam Sod 4.5 gm/Dextrose 120 ml @ 30 mls/hr Q8H IV 06/12/17 20:00 06/19/17 19:59 06/13/17 12:33 30 MLS/HR Famotidine 20 mg/ Syringe 5 ml @ 2.5 mls/min Q12H IV 06/12/17 16:00 07/12/17 15:59 06/13/17 04:17 2.5 MLS/MIN
[2017-06-13] MEDS: RIVAROXABAN 20 MG TAB PO SCH (16:43)
[2017-06-13] MEDS: LABETALOL HCL IV 5 MG/ML 20ML IV PRN (20:21)
[2017-06-13] MEDS ORDERED: LISINOPRIL 5 MG TAB PO ONE (22:25)
[2017-06-13] MEDS ORDERED: NSS + 20MEQ KCL 1000ML 1,000 ML IV ONE (23:30)
[2017-06-14] MEDS: FAMOTIDINE IV INJ 20 MG in SYRINGE 3 ML IV SCH (03:25)
[2017-06-14] MEDS: PIPERACILL/TAZOBAC IV 4.5 GM in DEXTROSE 5% 100ML IV SCH ×3 (03:27→20:30)
[2017-06-14 03:39] VITALS: BP 158/96; PULSE 83; TEMP 36.9; O2SAT 95
[2017-06-14 05:55] LABS: HEMATOCRIT 35.6 % (42-52); HEMOGLOBIN 12.3 g/dL (14.0-18.0); MEAN CELL VOLUME 91.8 fL (80-100); MEAN CORPUSCULAR HEMOGLOBIN 31.7 pg (25-34); MEAN CORPUSCULAR HGB CONC 34.6 g/dl (32-36); MEAN PLATELET VOLUME 9.3 fL (7.4-10.4); PLATELET COUNT 166 K/uL (130-400); RED CELL DISTRIBUTION WIDTH CV 12.8 % (11.5-14.5); RED CELL DISTRIBUTION WIDTH SD 43.2 fL (36.4-46.3); WHITE BLOOD COUNT 14.88 K/uL (4.8-10.8)
[2017-06-14 06:25] LABS: CREATININE 0.74 mg/dl (0.60-1.40); POTASSIUM 3.4 mmol/L (3.5-5.1)
[2017-06-14] MEDS: CITALOPRAM 20 MG TAB PO SCH (07:38)
[2017-06-14] MEDS: METOPROLOL SUCC 25MG EXT REL TAB PO SCH (07:39)
[2017-06-14] MEDS: LISINOPRIL 5 MG TAB PO SCH (07:39)
[2017-06-14 08:31] VITALS: BP 182/79; PULSE 84; O2SAT 94
[2017-06-14] MEDS ORDERED: POTASSIUM CHLORIDE 20 MEQ TABCR PO ONE (09:00)
[2017-06-14 11:33] VITALS: BP 169/96; PULSE 76; TEMP 37.1; O2SAT 92
[2017-06-14 15:15] VITALS: BP 166/109; PULSE 82; TEMP 37.2; O2SAT 95
--- NOTE | 2017-06-14 15:57 | Progress Note ---
Medicine Progress Note Date & Time of Visit: Jun 14, 2017 at 15:54. Subjective Pt was seen and examined Sitting in chair with no distress Pt said that pain improved Tolerated clear liquid diet Denies any chest pain, palpitation, dizziness and SOB Objective Last 8 Hrs Date Time Temp Pulse Resp B/P (MAP) Pulse Ox O2 Delivery O2 Flow Rate FiO2 06/14/17 15:15 37.2 82 18 166/109 (128) 95 Room Air 06/14/17 11:33 37.1 76 18 169/96 (120) 92 Room Air 06/14/17 08:31 84 16 182/79 (113) 94 Room Air Physical Exam: General- No acute distress Head- atraumatic Eyes- PERRL, EOMI ENT- oropharynx clear Neck- supple, no JVD Lungs- clear to auscultation Heart- regular rhythm Abdomen- +bowel sounds, soft, nondistended Extremities- no calf tenderness Neuro- alert, oriented x 3; PERRL, EOMI; no facial palsy Skin- warm & dry Laboratory Results: Last 24 Hours Test 06/14/17 05:28 White Blood Count 14.88 K/uL Red Blood Count 3.88 M/uL Hemoglobin 12.3 g/dL Hematocrit 35.6 % Mean Corpuscular Volume 91.8 fL Mean Corpuscular Hemoglobin 31.7 pg Mean Corpuscular Hemoglobin Concent 34.6 g/dl RDW Standard Deviation 43.2 fL RDW Coefficient of Variation 12.8 % Platelet Count 166 K/uL Mean Platelet Volume 9.3 fL Sodium Level 134 mmol/L Potassium Level 3.4 mmol/L Chloride Level 100 mmol/L Carbon Dioxide Level 28 mmol/L Anion Gap 6.0 mmol/L Blood Urea Nitrogen 9 mg/dl Creatinine 0.74 mg/dl Est Creatinine Clear Calc Drug Dose 172.2 ml/min Estimated GFR () 123.8 Estimated GFR (Non- 106.8 BUN/Creatinine Ratio 11.8 Random Glucose 106 mg/dl Calcium Level 8.0 mg/dl Assessment & Plan Acute Pancreatitis: Mostly induced by alcohol intake CT abd/pelvis showed findings that are consistent with severe acute pancreatitis. No organized peripancreatic fluid collection is identified Abd U/S showed findings suggest mild hepatic steatosis. No gallstones are identified. Continue IV fluids Lipase levels remain normal No clear evidence of necrosis on CT scan GI on board recommended supportive management for now On antibiotics IV zosyn Continue pain management Diet advanced as tolerated Electrolytes imbalance Likely secondary to dehydration from poor oral intake Continue IV fluids Monitor electrolytes Elevated WBC Possible due Pneumonia vs acute pancreatitis WBC 21K on admission WBC today 14K Afebrile, UA no growth Blood cx pending Normal lactate, procalcitonin Continue IV zosyn for now H/O PE on Xarelto: Denies bleeding issues continue Xarelto Stable HTN: Possible related to pain Increased lisinopril to 10mg daily Continue metoprolol Continue Labetalol PRN Monitor BP HLP: Continue holding statin secondary to pancreatitis NEIDA: Continue Celexa Stable Thyroid Nodule: Follow up as outpatient Stable DVT Px: On Xarelto Code Status: Full Code Disposition Will discharge tomorrow Follow up appointment with Dr. Samson on 06/18 @ 10:05 AM Current Inpatient Medications: Current Inpatient Medications Medications (Trade) Dose Ordered Sig/Fili Route Start Time Stop Time Status Last Admin Dose Admin Ioversol (Optiray 320) 111 ml UD PRN IV 06/12/17 10:15 06/16/17 10:14 Acetaminophen (Tylenol Tab) 650 mg Q4H PRN PO 06/12/17 12:30 07/12/17 12:29 Ondansetron HCl (Zofran Inj) 4 mg Q6H PRN IV 06/12/17 12:30 07/12/17 12:29 Nitroglycerin (Nitrostat Tab) 0.4 mg UD PRN SL 06/12/17 12:30 07/12/17 12:29 Miscellaneous Information (Consult) 1 ea UD PRN N/A 06/12/17 12:45 07/12/17 12:44 Morphine Sulfate (MoRPHine SULFATE INJ) 1 mg Q4H PRN IV 06/12/17 12:30 06/26/17 12:29 06/13/17 10:47 1 MG Citalopram Hydrobromide (celeXA TAB) 20 mg DAILY PO 06/13/17 09:00 07/13/17 08:59 06/14/17 07:38 20 MG Fluticasone Propionate (Flonase Nasal [place]) 2 sprays DAILY PRN AUBREE 06/12/17 12:30 07/12/17 12:29 Metoprolol Succinate (Toprol Xl Tab) 25 mg DAILY PO 06/13/17 09:00 07/13/17 08:59 06/14/17 07:39 25 MG Rivaroxaban (Xarelto Tab) 20 mg DAILY@1700 PO 06/13/17 17:00 07/13/17 16:59 06/13/17 16:43 20 MG Labetalol HCl (Normodyne IV) 10 mg Q6H PRN IV 06/12/17 12:45 07/12/17 12:44 06/13/17 20:21 10 MG Piperacillin Sod/ Tazobactam Sod 4.5 gm/Dextrose 120 ml @ 30 mls/hr Q8H IV 06/12/17 20:00 06/19/17 19:59 06/14/17 12:31 30 MLS/HR Lisinopril (Zestril Tab) 10 mg DAILY PO 06/14/17 09:00 07/13/17 08:59 06/14/17 07:39 10 MG Famotidine (Pepcid Tab) 20 mg BID PO 06/14/17 21:00 07/14/17 20:59
[2017-06-14] MEDS ORDERED: HydrALAZINE HCL 20 MG/ML VIAL IV. PRN (16:00)
[2017-06-14] MEDS: RIVAROXABAN 20 MG TAB PO SCH (17:08)
[2017-06-14] MEDS: MoRPHine SULFATE 2 MG/ML CARP IV PRN ×2 (17:16→21:19)
[2017-06-14 19:25] VITALS: BP 179/105; PULSE 80; TEMP 37.2; O2SAT 92
[2017-06-14] MEDS: LABETALOL HCL IV 5 MG/ML 20ML IV PRN (20:22)
[2017-06-14] MEDS: FAMOTIDINE 20 MG TAB PO SCH (21:18)
[2017-06-14 23:38] VITALS: BP 159/90; PULSE 80; TEMP 37.2; O2SAT 95
[2017-06-15] MEDS: PIPERACILL/TAZOBAC IV 4.5 GM in DEXTROSE 5% 100ML IV SCH (03:28)
[2017-06-15 03:38] VITALS: BP 162/97; PULSE 79; TEMP 36.9; O2SAT 96
[2017-06-15 07:26] LABS: HEMATOCRIT 37.5 % (42-52); HEMOGLOBIN 12.8 g/dL (14.0-18.0); MEAN CELL VOLUME 91.9 fL (80-100); MEAN CORPUSCULAR HEMOGLOBIN 31.4 pg (25-34); MEAN CORPUSCULAR HGB CONC 34.1 g/dl (32-36); PLATELET COUNT 207 K/uL (130-400); RED CELL DISTRIBUTION WIDTH CV 12.8 % (11.5-14.5); RED CELL DISTRIBUTION WIDTH SD 43.5 fL (36.4-46.3); WHITE BLOOD COUNT 10.37 K/uL (4.8-10.8)
[2017-06-15 07:36] VITALS: BP 152/88; PULSE 80; TEMP 36.7; O2SAT 93
[2017-06-15 07:52] LABS: CREATININE 0.86 mg/dl (0.60-1.40)
[2017-06-15 07:53] LABS: CALCIUM 8.5 mg/dl (8.5-10.1); POTASSIUM 3.3 mmol/L (3.5-5.1)
[2017-06-15] MEDS ORDERED: POTASSIUM CHLORIDE 10 MEQ TABCR PO ONE (08:30)
[2017-06-15] MEDS: FAMOTIDINE 20 MG TAB PO SCH (09:12)
[2017-06-15] MEDS: LISINOPRIL 5 MG TAB PO SCH (09:12)
[2017-06-15] MEDS: METOPROLOL SUCC 25MG EXT REL TAB PO SCH (09:12)
[2017-06-15] MEDS: CITALOPRAM 20 MG TAB PO SCH (09:13)
[2017-06-15 12:02] VITALS: BP 160/99; PULSE 75; TEMP 37.1; O2SAT 95
--- NOTE | 2017-06-15 13:16 | Progress Note ---
Medicine Progress Note Date & Time of Visit: Jun 15, 2017 at 12:49. Subjective Pt was seen and examined Lying in bed with no distress Pt said that he feels much better Tolerated full liquid diet He is afraid to advance his diet now He wants to wait another day and advance his diet gradually once discharge home He said that his abdominal pain improves Denies any chest pain, palpitation, dizziness and SOB Objective Last 8 Hrs Date Time Temp Pulse Resp B/P (MAP) Pulse Ox O2 Delivery O2 Flow Rate FiO2 06/15/17 12:02 37.1 75 18 160/99 (119) 95 Room Air 06/15/17 07:36 36.7 80 20 152/88 (109) 93 Room Air Physical Exam: General- No acute distress Head- atraumatic Eyes- PERRL, EOMI ENT- oropharynx clear Neck- supple, no JVD Lungs- clear to auscultation Heart- regular rhythm Abdomen- +bowel sounds, soft, nondistended Extremities- no calf tenderness Neuro- alert, oriented x 3; PERRL, EOMI; no facial palsy Skin- warm & dry Laboratory Results: Last 24 Hours Test 06/15/17 07:15 White Blood Count 10.37 K/uL Red Blood Count 4.08 M/uL Hemoglobin 12.8 g/dL Hematocrit 37.5 % Mean Corpuscular Volume 91.9 fL Mean Corpuscular Hemoglobin 31.4 pg Mean Corpuscular Hemoglobin Concent 34.1 g/dl RDW Standard Deviation 43.5 fL RDW Coefficient of Variation 12.8 % Platelet Count 207 K/uL Mean Platelet Volume 9.0 fL Sodium Level 136 mmol/L Potassium Level 3.3 mmol/L Chloride Level 99 mmol/L Carbon Dioxide Level 30 mmol/L Anion Gap 6.0 mmol/L Blood Urea Nitrogen 8 mg/dl Creatinine 0.86 mg/dl Est Creatinine Clear Calc Drug Dose 147.6 ml/min Estimated GFR () 116.4 Estimated GFR (Non- 100.4 BUN/Creatinine Ratio 9.7 Random Glucose 100 mg/dl Calcium Level 8.5 mg/dl Assessment & Plan Acute Pancreatitis: Mostly induced by alcohol intake CT abd/pelvis showed findings that are consistent with severe acute pancreatitis. No organized peripancreatic fluid collection is identified Abd U/S showed findings suggest mild hepatic steatosis. No gallstones are identified. Continue IV fluids Lipase levels remain normal No clear evidence of necrosis on CT scan GI on board recommended supportive management for now On antibiotics IV zosyn Continue pain management Diet advanced as to full liquid Will plan to advance diet slowly Electrolytes imbalance Likely secondary to dehydration from poor oral intake Continue IV fluids Monitor electrolytes Elevated WBC Possible due Pneumonia vs acute pancreatitis WBC 21K on admission WBC today 10K Afebrile, UA no growth Blood cx no growth Normal lactate, procalcitonin On IV Zosyn for now Will not discharge on abx H/O PE on Xarelto: Denies bleeding issues continue Xarelto Stable HTN: Possible related to pain Increased lisinopril to 10mg daily Follow up with PCP to titrate lisinopril to 20mg Continue metoprolol On Labetalol PRN Monitor BP HLP: Continue holding statin secondary to pancreatitis NEIDA: Continue Celexa Stable Thyroid Nodule: Follow up as outpatient Stable DVT Px: On Xarelto Code Status: Full Code Disposition Will discharge home today Follow up appointment with Dr. Samson on 06/18 @ 10:05 AM Current Inpatient Medications: Current Inpatient Medications Medications (Trade) Dose Ordered Sig/Fili Route Start Time Stop Time Status Last Admin Dose Admin Ioversol (Optiray 320) 111 ml UD PRN IV 06/12/17 10:15 06/16/17 10:14 Acetaminophen (Tylenol Tab) 650 mg Q4H PRN PO 06/12/17 12:30 07/12/17 12:29 Ondansetron HCl (Zofran Inj) 4 mg Q6H PRN IV 06/12/17 12:30 07/12/17 12:29 Nitroglycerin (Nitrostat Tab) 0.4 mg UD PRN SL 06/12/17 12:30 07/12/17 12:29 Miscellaneous Information (Consult) 1 ea UD PRN N/A 06/12/17 12:45 07/12/17 12:44 Morphine Sulfate (MoRPHine SULFATE INJ) 1 mg Q4H PRN IV 06/12/17 12:30 06/26/17 12:29 06/14/17 21:19 1 MG Citalopram Hydrobromide (celeXA TAB) 20 mg DAILY PO 06/13/17 09:00 07/13/17 08:59 06/15/17 09:13 20 MG Fluticasone Propionate (Flonase Nasal [place]) 2 sprays DAILY PRN AUBREE 06/12/17 12:30 07/12/17 12:29 Metoprolol Succinate (Toprol Xl Tab) 25 mg DAILY PO 06/13/17 09:00 07/13/17 08:59 06/15/17 09:12 25 MG Rivaroxaban (Xarelto Tab) 20 mg DAILY@1700 PO 06/13/17 17:00 07/13/17 16:59 06/14/17 17:08 20 MG Labetalol HCl (Normodyne IV) 10 mg Q6H PRN IV 06/12/17 12:45 07/12/17 12:44 06/14/17 20:22 10 MG Piperacillin Sod/ Tazobactam Sod 4.5 gm/Dextrose 120 ml @ 30 mls/hr Q8H IV 06/12/17 20:00 06/19/17 19:59 06/15/17 03:28 30 MLS/HR Lisinopril (Zestril Tab) 10 mg DAILY PO 06/14/17 09:00 07/13/17 08:59 06/15/17 09:12 10 MG Famotidine (Pepcid Tab) 20 mg BID PO 06/14/17 21:00 07/14/17 20:59 06/15/17 09:12 20 MG Hydralazine HCl (HydrALAZINE INJ) 10 mg ONE PRN IV. 06/14/17 16:00 07/14/17 15:59 06/14/17 17:15 10 MG
[2017-06-15] MEDS ORDERED: LISI10TA PO (13:18)
--- NOTE | 2017-06-15 13:26 | Discharge Instructions ---
Discharge Instructions Date of Service Jun 15, 2017. Admission Reason for Admission: Pancreatitis Discharge Discharge Diagnosis / Problem: Acute Pancreatitis, Hypertension, Electrolytes imbalance Discharge Goals Goal(s): Decrease discomfort, Improve function, Improve disease control Activity Recommendations Activity Limitations: resume your previous activity (as tolerated) . Instructions / Follow-Up Instructions / Follow-Up Follow up appointment with your primary care provider Dr. Samson on 06/18 @ 10:05 AM Follow up with Gastroenterology as needed Advanced diet as tolerated Counseling on alcohol cessation Monitor blood pressure (your physician will titrate your blood pressure med if needs to) Follow up a low salt diet Current Hospital Diet Patient's current hospital diet: Full Liquid Diet Discharge Diet Recommended Diet: Regular Diet (soft diet and advanced as tolerated) Pending Studies Studies pending at discharge: no Laboratory Results Lipid Panel Test 06/13/17 06:39 Range/Units Triglycerides Level 76 0-150 mg/dl Cholesterol Level 95 0-200 mg/dl HDL Cholesterol 25 mg/dl Cholesterol/HDL Ratio 3.8 LDL Cholesterol, Calculated 55 mg/dl Medical Emergencies . Who to Call and When: Medical Emergencies: If at any time you feel your situation is an emergency, please call 911 immediately. . Non-Emergent Contact Non-Emergency issues call your: Primary Care Provider Call Non-Emergent contact if: your pain is worsening, you have any medication questions . . "Provider Documentation" section prepared by Regine Collazo. .
[2017-06-15 13:45] VITALS: BP 160/99; PULSE 75; TEMP 37.1; O2SAT 95
--- NOTE | 2017-06-19 10:15 | Discharge Summary ---
Discharge Summary Date of Service Jun 19, 2017. Discharge Summary Admission Date: Jun 12, 2017 at 12:23 Discharge Date: Jun 15, 2017 Discharge Disposition: Home Principal Diagnosis: Acute Pancreatitis Secondary Diagnoses/Problems: Hypertension Electrolytes imbalance Elevated WBC H/O PE THYROID NODULE CAD Dyslipidemia Procedures: ULTRASOUND RIGHT UPPER QUADRANT ABDOMEN CLINICAL HISTORY: Elevated hepatic transaminases. COMPARISON STUDY: Abdominal CT dated 06/12/2017. TECHNIQUE: Real-time, grayscale, and color flow sonography of the right upper quadrant of the abdomen was performed. Images are reviewed in the transverse and longitudinal planes. The examination is degraded by large body habitus. FINDINGS: Liver: The liver is normal in size and demonstrates heterogeneously increased echotexture suggesting mild steatosis. There is no intrahepatic biliary ductal dilatation. The main portal vein is patent. Gallbladder: The gallbladder is normal in appearance. No gallstones are identified. There is no gallbladder wall thickening or pericholecystic fluid. A sonographic Cornelius's sign is reportedly absent. The common bile duct measures up to 0.5 cm in diameter. Pancreas: Not well visualized due to overlying bowel gas. Right kidney: Survey images of the right kidney demonstrate normal size and echotexture. There is no hydronephrosis. Ascites: None. IMPRESSION: 1. Findings suggest mild hepatic steatosis. 2. No gallstones are identified. 3. The pancreas was not well visualized. Electronically signed by: Rajendra Oropeza M.D. 06/12/2017 2:50 PM Dictated Date/Time: 06/12/2017 2:[address] SCAN OF THE ABDOMEN AND PELVIS WITH IV CONTRAST CLINICAL HISTORY: Generalized abdominal pain. COMPARISON STUDY: No priors. TECHNIQUE: Following the IV administration of 118 cc of Optiray 320, CT scan of the abdomen and pelvis is performed from the lung bases to the proximal femora. Images are reviewed in the axial, sagittal, and coronal planes. IV contrast was administered without complication. A dose lowering technique was utilized adhering to the principles of ALARA. CT DOSE: 1503.41 mGy.cm FINDINGS: Lung bases: The heart is normal in size and without pericardial effusion. There are coronary artery calcifications. There is a small left pleural effusion with associated consolidation. Trace pleural fluid is seen at the right lung base. Liver: The contrast-enhanced liver is normal in size, contour, and attenuation. There is no intrahepatic biliary ductal dilatation. The hepatic veins and portal veins are patent. Gallbladder: Unremarkable. Spleen: Normal in size and attenuation. Pancreas: The pancreas is edematous and there is significant peripancreatic inflammatory stranding as well as peripancreatic fluid. The appearance is consistent with acute pancreatitis. The pancreatic parenchyma enhances heterogeneously. There is no clear evidence of necrosis. The splenic vein is patent. No organized. Pancreatic fluid collection is suggested. Adrenal glands: Unremarkable. Kidneys: The contrast enhanced kidneys are normal in size and without hydronephrosis. The kidneys enhance symmetrically. Abdominal vasculature: The abdominal aorta is normal in course and caliber. Bowel: The small bowel and colon are normal in course and caliber. The appendix is normal as visualized. Peritoneum: There is trace perihepatic and perisplenic ascites. A small volume of ascites is also noted in the pelvis. No intraperitoneal free air is seen. A fat-containing umbilical hernia is noted. Lymphadenopathy: None. Pelvic viscera: The bladder, prostate, and seminal vesicles are normal as visualized. There is a tiny fat-containing left inguinal hernia. Skeletal structures: No lytic or blastic lesions are seen. IMPRESSION: 1. Findings are consistent with severe acute pancreatitis. 2. No organized peripancreatic fluid collection is identified. The pancreas parenchyma enhances heterogeneously with no clear evidence of necrosis. 3. There is a small volume of abdominopelvic ascites. 4. Small left pleural effusion with associated consolidation. This likely represents atelectasis. Correlate clinically for evidence of superimposed pneumonia. 5. Trace pleural fluid is seen at the right lung base. 6. Additional findings as above. Electronically signed by: Rajendra Oropeza M.D. 06/12/2017 10:47 AM Dictated Date/Time: 06/12/2017 10:39 AM [~ rep ct add3]] SINGLE VIEW CHEST CLINICAL HISTORY: Atypical chest pain. FINDINGS: An AP, portable, upright chest radiograph is correlated with chest CT dated 12/04/2015. The examination is degraded by portable technique and patient rotation. The heart is top normal for projection. The pulmonary vasculature is noncongested. There are low lung volumes. There is left basilar consolidation and a small left pleural effusion. The right lung is grossly clear. No pneumothorax is seen. The bony thorax is grossly intact. IMPRESSION: 1. There is a small left pleural effusion with associated left basilar consolidation. This could represent atelectasis and/or pneumonia. Clinical correlation will be required and radiographic follow-up to resolution is recommended. 2. Low lung volumes. The right lung appears clear. Electronically signed by: Rajendra Oropeza M.D. 06/12/2017 9:34 AM Dictated Date/Time: 06/12/2017 9:33 AM Consultations: gastro Medication Reconciliation New Medications: Lisinopril (Prinivil) 10 Mg Tab 1 TAB PO DAILY for 30 Days, #30 TAB Continued Medications: Atorvastatin (Lipitor) 80 Mg Tab 80 MG PO DAILY, TAB Citalopram (Citalopram Hydrobromide) 20 Mg Tab 20 MG PO DAILY Fluticasone Propionate (Nasal) (Flonase Allergy Relief) 50 Mcg/Act Spr 2 SPRAYS AUBREE DAILY PRN for allergies Metoprolol Succ (Toprol Xl) (Toprol-Xl) 25 Mg Tabcr 25 MG PO DAILY, TAB Nitroglycerin (Nitrostat) 0.4 Mg/1 Tab Subl 0.4 MG UT UD PRN for Chest Pain Rivaroxaban (Xarelto) 20 Mg Tab 20 MG PO DAILY, TAB Vitamins C & E (Vitamin C) 1 Cap Cap 1 CAP PO DAILY Discontinued Medications: Lisinopril (Lisinopril) 5 Mg Tab 5 MG PO DAILY Admission Information HPI (per Admitting provider): Patient is 52 yr male with PMH of PE on Xarelto, HTN, HLP, NEIDA, Thyroid Nodule, Chronic rhinitis and other problems presents with history of abdominal pain, bloating which started 4 days ago. Patient states he noticed the pain started after drinking alcohol on Wednesday night. Abdominal pain is sharp, consistent, 7/ 10, radiates to back, associated with poor appetite, nausea, vomiting, improved minimally with Pepto Bismol and worsens with food intake. Denies similar symptoms in the past. He states he socially drinks alcohol twice a week. Reports one episode of diarrhea on Wednesday and had no bowel movement since then.Patient states he feels bloated with minimal food intake and has been burping a lot. Reports low grade fever but denies any chest pain, SOB, dizziness , cough, blood in stools, dysuria, recent travel, sick contact, recent change in medications. Physical Exam (per Admitting): General Appearance: WD/WN, no apparent distress Head: normocephalic, atraumatic Eyes: normal inspection, PERRL, EOMI, sclerae normal ENT: normal ENT inspection, hearing grossly normal Neck: supple, trachea midline Respiratory/Chest: chest non-tender, lungs clear, normal breath sounds, no respiratory distress, no accessory muscle use Cardiovascular: regular rate, rhythm, no edema, no murmur, + tachycardia Abdomen/GI: normal bowel sounds, soft, + tenderness (Epigastric tenderness) , + pertinent finding (No guarding, rigidity) Back: normal inspection Extremities/Musculoskelatal: normal inspection, no pedal edema Neurologic/Psych: computer aide II-XII nml as tested, no motor/sensory deficits, alert , normal mood/affect, oriented x 3 Skin: normal color, warm/dry Hospital Course Acute Pancreatitis: Mostly induced by alcohol intake CT abd/pelvis showed findings that are consistent with severe acute pancreatitis. No organized peripancreatic fluid collection is identified Abd U/S showed findings suggest mild hepatic steatosis. No gallstones are identified. Continue IV fluids Lipase levels remain normal No clear evidence of necrosis on CT scan GI on board recommended supportive management for now On antibiotics IV zosyn Continue pain management Diet advanced as to full liquid Will plan to advance diet slowly Electrolytes imbalance Likely secondary to dehydration from poor oral intake Continue IV fluids Monitor electrolytes Elevated WBC Possible due Pneumonia vs acute pancreatitis WBC 21K on admission WBC today 10K Afebrile, UA no growth Blood cx no growth Normal lactate, procalcitonin On IV Zosyn for now Will not discharge on abx H/O PE on Xarelto: Denies bleeding issues continue Xarelto Stable HTN: Possible related to pain Increased lisinopril to 10mg daily Follow up with PCP to titrate lisinopril to 20mg Continue metoprolol On Labetalol PRN Monitor BP HLP: Continue holding statin secondary to pancreatitis NEIDA: Continue Celexa Stable Thyroid Nodule: Follow up as outpatient Stable DVT Px: On Xarelto Code Status: Full Code Disposition Will discharge home today Follow up appointment with Dr. Samson on 06/18 @ 10:05 AM Total time spent on discharge = 35 minutes This includes examination of the patient, discharge planning, medication reconciliation, and communication with other providers. Discharge Instructions Discharge Instructions Date of Service Jun 15, 2017. Admission Reason for Admission: Pancreatitis Discharge Discharge Diagnosis / Problem: Acute Pancreatitis, Hypertension, Electrolytes imbalance Discharge Goals Goal(s): Decrease discomfort, Improve function, Improve disease control Activity Recommendations Activity Limitations: resume your previous activity (as tolerated) . Instructions / Follow-Up Instructions / Follow-Up Follow up appointment with your primary care provider Dr. Samson on 06/18 @ 10:05 AM Follow up with Gastroenterology as needed Advanced diet as tolerated Counseling on alcohol cessation Monitor blood pressure (your physician will titrate your blood pressure med if needs to) Follow up a low salt diet Current Hospital Diet Patient's current hospital diet: Full Liquid Diet Discharge Diet Recommended Diet: Regular Diet (soft diet and advanced as tolerated) Pending Studies Studies pending at discharge: no Laboratory Results Lipid Panel Test 06/13/17 06:39 Range/Units Triglycerides Level 76 0-150 mg/dl Cholesterol Level 95 0-200 mg/dl HDL Cholesterol 25 mg/dl Cholesterol/HDL Ratio 3.8 LDL Cholesterol, Calculated 55 mg/dl Medical Emergencies . Who to Call and When: Medical Emergencies: If at any time you feel your situation is an emergency, please call 911 immediately. . Non-Emergent Contact Non-Emergency issues call your: Primary Care Provider Call Non-Emergent contact if: your pain is worsening, you have any medication questions . . "Provider Documentation" section prepared by Regine Collazo. . Additional Copies To Maureen SAMSON M.D.
== END 2017-06-15 14:38 | disposition home or self-care (01) | DRG 438 ==
LOC: C.EDB 08:43 → C.2T 12:23 → ENRESERV 12:32
PROVIDERS: ADMIT Internal Medicine; ATTEND Internal Medicine
DX: K85.20 Alcohol induced acute pancreatitis without necrosis or infection (principal); E87.1 Hypo-osmolality and hyponatremia; J18.9 Pneumonia, unspecified organism; Z87.891 Personal history of nicotine dependence; I10 Essential (primary) hypertension; E78.5 Hyperlipidemia, unspecified; Z86.711 Personal history of pulmonary embolism; E87.6 Hypokalemia; E86.0 Dehydration; F41.1 Generalized anxiety disorder; E04.1 Nontoxic single thyroid nodule; I25.10 Atherosclerotic heart disease of native coronary artery without angina pectoris